=== PATIENT | female | born 1990 | race Caucasian/White ===

== ENCOUNTER 2017-03-08 19:05 | Emergency (ER) | payer BC ==
[2017-03-08 19:23] VITALS: BP 127/83
[2017-03-08] MEDS ORDERED: Orphenadrine 100 MG Tab.ER PO STA (19:54)
--- NOTE | 2017-03-08 19:59 | EDM.PDOC ---
ED HPI GENERAL MEDICAL PROBLEM - General Chief Complaint: Back Pain or Injury Stated Complaint: LOWER BACK PAIN Time Seen by Provider: 03/08/17 19:23 Source of Information: Reports: Patient, Family (), RN Notes Reviewed History Limitations: Reports: No Limitations - History of Present Illness INITIAL COMMENTS - FREE TEXT/NARRATIVE: The patient states that she has a long standing history of lower back pain, but that it has been worse for the past 5 days. No recent injury. She states that she typically gets a steroid injection about once a year. She complains of pain to her sacral area, as well as to the left and right sacroiliac joints. The pain does not radiate. She feels better if she is supine , worse with activity. The patient does not have a PCP. 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 Back Pain Score (Numeric/FACES): 10 - Related Data Allergies Allergy/AdvReac Type Severity Reaction Status Date / Time blue dye Allergy Hives Verified 03/08/17 19:18 pineapple Allergy Swollen Verified 03/08/17 19:18 Tongue red (food color) Allergy Hives Verified 03/08/17 19:18 Sulfa (Sulfonamide Allergy Hives Verified 03/08/17 19:18 Antibiotics) Home Meds: Home Meds Acetaminophen/oxyCODONE [Percocet 325-5 MG] 2 tab PO Q4H PRN #20 tablet [Rx] Cetirizine [ZyrTEC] 10 mg PO DAILY PRN 04/01/16 [History] Ibuprofen [Motrin] 600 mg PO Q4H PRN #30 tablet 04/01/16 [Rx] Orphenadrine [Norflex] 1 tab PO Q12H #20 tab.er 03/08/17 [Rx] Past Medical History Other HEENT History: Wears glasses 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: Reports: Ectopic (04/02/2016), Musculoskeletal History: Reports: Back Pain, Chronic Endocrine/Metabolic History: Reports: Obesity/BMI 30+ - Past Surgical History HEENT Surgical History: Reports: Oral Surgery ([place] teeth extraction) Female Surgical History: Reports: Other (See Below) (Ectopic ) Social & Family History - Tobacco Use Smoking Status *Q: Former Smoker Years of Tobacco use: 14 Packs/Tins Daily: 0.1 Month Tobacco Last Used: Quit December 2016 Second Hand Smoke Exposure: Yes - Caffeine Use Caffeine Use: Reports: Coffee - Alcohol Use Alcohol Use History: No Days Per Week of Alcohol Use: 0 - Recreational Drug Use Recreational Drug Use: No - Living Situation & Occupation Living situation: Reports: , with Spouse Occupation: Employed (Morning [employer] at [employer]) ED ROS GENERAL - Review of Systems Review Of Systems: See Below Constitutional: Reports: No Symptoms HEENT: Reports: No Symptoms Respiratory: Reports: No Symptoms Cardiovascular: Reports: No Symptoms Endocrine: Reports: No Symptoms GI/Abdominal: Reports: No Symptoms : Reports: No Symptoms Musculoskeletal: Reports: No Symptoms Skin: Reports: No Symptoms Neurological: Reports: No Symptoms Psychiatric: Reports: No Symptoms Hematologic/Lymphatic: Reports: No Symptoms Immunologic: Reports: No Symptoms ED EXAM,LOWER BACK PAIN/INJURY - Physical Exam Exam: See Below Exam Limited By: No Limitations General Appearance: Alert, WD/WN, No Apparent Distress Back Exam: Other (No visible abnormality to the patient's lower back, such as swelling, erythema, ecchymosis, or abrasion. The patient reports tenderness primarily to palpation over the sacrum, less so to palpation over either sacroiliac joint. The patient is able to flex the spine to 70, extend to about 10. She is able to tilt to the right about 30, to the left about 45. She is able to twist the spine to about 40 bilaterally. Unilateral knee bend is normal bilaterally. Straight leg raise is negative to 70 bilaterally.) Course - Vital Signs Last Recorded V/S: Last Vital Signs Temp 36.3 C 03/08/17 19:18 Pulse 80 03/08/17 19:18 Resp 16 03/08/17 19:18 BP 127/83 03/08/17 19:18 Pulse Ox 97 03/08/17 19:18 - Orders/Labs/Meds Meds: Medications Discontinued Medications Generic Name Dose Route Start Last Admin Trade Name Freq PRN Reason Stop Dose Admin Orphenadrine Citrate 100 mg 03/08/17 19:54 Norflex PO 03/08/17 19:55 ONETIME STA - Re-Assessments/Exams Free Text/Narrative Re-Assessment/Exam: 03/08/17 19:55 Clinically, the patient has low back strain. She does not have a history or examination that is consistent with disc disease. I will start her on Norflex, recommend she take [id number] ibuprofen, and exercise. I will refer her to the clinic, should her symptoms not improve. Departure - Departure Time of Disposition: 19:56 Disposition: Home, Self-Care 01 Condition: Good Clinical Impression: Low back strain - Discharge Information Prescriptions: Orphenadrine [Norflex] 1 tab PO Q12H #20 tab.er Referrals: PCP,None [Primary Care Provider] - Dora Reese PA-C [Physician Warhead Maintenance Specialist] - Forms: ED Department Discharge Additional Instructions: You were seen in the emergency room for recurrent low back pain. Your examination is consistent with a low back strain, not a herniated disc. You have been started on the muscle relaxant Norflex. Take one tablet every 12 hours, as prescribed. We recommend you take uero-wlc-npyfqhd ibuprofen 2-3 tablets (400-600 mg) with food, as needed for discomfort. It is very important that you stay active. Swimming is best, but if you cannot swim, walking, bicycling, and stretching are all good. Follow-up with Dora Reese in the clinic if your symptoms do not improve within about a week. If any other problems, please do not hesitate to return to the ER.
== END 2017-03-08 20:15 | disposition home or self-care (01) ==
LOC: JD.ED 19:05
DX: S39.012A Strain of muscle, fascia and tendon of lower back, initial encounter (principal); E66.9 Obesity, unspecified; Z88.2 Allergy status to sulfonamides; Z79.899 Other long term (current) drug therapy; Z68.41 Body mass index [BMI] 40.0-44.9, adult; Z87.891 Personal history of nicotine dependence; X58.XXXA Exposure to other specified factors, initial encounter
CPT/HCPCS: 76817; 99283; A9270

== ENCOUNTER 2017-05-17 07:48 | Emergency (ER) | payer BC ==
[2017-05-17] MEDS ORDERED: Ondansetron 4 MG/2 ML SDV IVPUSH ONE ×2 (08:10→11:01)
[2017-05-17] MEDS ORDERED: HYDROmorphone 1 MG/ML Syringe IVPUSH ONE ×2 (08:10→11:33)
--- NOTE | 2017-05-17 08:14 | EDM.PDOC ---
ED HPI GENERAL MEDICAL PROBLEM - General Chief Complaint: Abdominal Pain Stated Complaint: ABDOMINAL PAIN Time Seen by Provider: 05/17/17 07:53 Source of Information: Reports: Patient, Old Records, RN Notes Reviewed History Limitations: Reports: No Limitations - History of Present Illness INITIAL COMMENTS - FREE TEXT/NARRATIVE: The patient states that she was woken around 05:20 this morning with right upper quadrant abdominal pain. She is unable to describe its character. It does not radiate. She states that it waxes and wanes. She has not identified any modifiers. She also reports nausea and vomiting since around 06:00. She states that she attempted to drink some water earlier this morning, but vomited it up. No solid food this morning. She reports having chicken for dinner last night. She reports constipation for the last 2 days, but no recent diarrhea. No urinary symptoms. She denies prior similar symptoms. The patient does not have a PCP. Right Abdomen Pain Score (Numeric/FACES): 9 - Related Data Allergies Allergy/AdvReac Type Severity Reaction Status Date / Time blue dye Allergy Hives Verified 05/17/17 07:56 pineapple Allergy Swollen Verified 05/17/17 07:56 Tongue red (food color) Allergy Hives Verified 05/17/17 07:56 Sulfa (Sulfonamide Allergy Hives Verified 05/17/17 07:56 Antibiotics) Home Meds: Home Meds Hydrocodone/Acetaminophen [Gifford 5-325 Tablet] 1 - 2 tab PO Q6H PRN #20 tablet 05/17/17 [Rx] Ondansetron [Zofran ODT] 4 mg PO Q8H PRN #10 tab.dis 05/17/17 [Rx] Tamsulosin HCl [Flomax] 1 tab PO DAILY #5 cap.er.24h 05/17/17 [Rx] Past Medical History HEENT History: Reports: Impaired Vision Other HEENT History: 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 glasses 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 , Musculoskeletal History: Reports: Back Pain, Chronic Endocrine/Metabolic History: Reports: Obesity/BMI 30+ - Past Surgical History HEENT Surgical History: Reports: Oral Surgery ([place] teeth extraction) Female Surgical History: Reports: Other (See Below) (Ectopic 2015) Social & Family History - Tobacco Use Smoking Status *Q: Former Smoker Years of Tobacco use: 14 Packs/Tins Daily: 0.1 Month Tobacco Last Used: Quit 12/2016 Second Hand Smoke Exposure: Yes - Caffeine Use Caffeine Use: Reports: Coffee - Alcohol Use Alcohol Use History: Yes Days Per Week of Alcohol Use: 0 - Recreational Drug Use Recreational Drug Use: No - Living Situation & Occupation Living situation: Reports: , with Spouse Occupation: Employed ([employer] at [employer]) ED ROS GENERAL - Review of Systems Review Of Systems: See Below Constitutional: Reports: No Symptoms HEENT: Reports: No Symptoms Respiratory: Reports: No Symptoms Cardiovascular: Reports: No Symptoms Endocrine: Reports: No Symptoms GI/Abdominal: Reports: No Symptoms : Reports: No Symptoms Musculoskeletal: Reports: No Symptoms Skin: Reports: No Symptoms Neurological: Reports: No Symptoms Psychiatric: Reports: No Symptoms Hematologic/Lymphatic: Reports: No Symptoms Immunologic: Reports: No Symptoms ED EXAM, GI/ABD - Physical Exam Exam: See Below Exam Limited By: No Limitations General Appearance: Alert, WD/WN, Mild Distress (Appears uncomfortable) Eyes: Bilateral: Normal Appearance, EOMI Ears: Normal External Exam, Hearing Grossly Normal Nose: Normal Inspection, No Blood Throat/Mouth: Normal Inspection, Normal Lips, Normal Voice, No Airway Compromise Head: Atraumatic, Normocephalic Neck: Normal Inspection, Full Range of Motion Respiratory/Chest: No Respiratory Distress, Lungs Clear, Normal Breath Sounds, No Accessory Muscle Use Cardiovascular: Normal Peripheral Pulses, Regular Rate, Rhythm, No Gallop, No JVD, No Murmur, No Rub GI/Abdominal Exam: Normal Bowel Sounds, Soft, No Organomegaly, No Distention, No Abnormal Bruit, No Mass, Pelvis Stable, Tender (In the right upper quadrant and suprapubic regions. Nontender elsewhere.), Other (Obese) (Female) Exam: Deferred Rectal (Female) Exam: Deferred Back Exam: Normal Inspection, Full Range of Motion, CVA Tenderness (R). No: CVA Tenderness (L) Extremities: Normal Inspection, Normal Range of Motion, No Pedal Edema, Normal Capillary Refill Neurological: Alert, Oriented, Normal Cognition, No Motor/Sensory Deficits Psychiatric: Normal Affect Skin Exam: Warm, Dry, Intact, Normal Color, No Rash Lymphatic: No Adenopathy Course - Vital Signs Last Recorded V/S: Last Vital Signs Temp 35.7 C 05/17/17 07:53 Pulse 60 05/17/17 07:53 Resp 16 05/17/17 07:53 BP 141/80 H 05/17/17 07:53 Pulse Ox 99 05/17/17 07:53 - Orders/Labs/Meds Orders: Active Orders 24 hr Category Date Time Status Strain Urine [RC] ASDIRECTED Care 05/17/17 11:36 Ordered Abdomen Ltd [US] Stat Exams 05/17/17 08:12 Taken Abdomen Pelvis w Cont [CT] Stat Exams 05/17/17 08:10 Taken Sodium Chloride 0.9% [Normal Saline] 1,000 ml Med 05/17/17 08:15 Active IV ASDIRECTED Sodium Chloride 0.9% [Saline Flush] Med 05/17/17 10:27 Active 10 ml FLUSH ONETIME PRN Medication Orders Sodium Chloride (Normal Saline) 1,000 mls @ 150 mls/hr IV ASDIRECTED ANDRÉS Last Admin: 05/17/17 08:32 Dose: 150 mls/hr Sodium Chloride (Saline Flush) 10 ml FLUSH ONETIME PRN PRN Reason: IV FLUSH Last Admin: 05/17/17 10:53 Dose: 10 ml Labs: Laboratory Tests 05/17/17 05/17/17 05/17/17 Range/Units 08:30 08:30 09:25 WBC 12.67 H (3.98-10.04) K/mm3 RBC 4.89 (3.98-5.22) M/mm3 Hgb 13.7 (11.2-15.7) gm/L Hct 40.4 (34.1-44.9) % MCV 82.6 (79.4-94.8) fl MCH 28.0 (25.6-32.2) pg MCHC 33.9 (32.2-35.5) g/dl RDW Std Deviation 46.4 H (36.4-46.3) fL Plt Count 308 (182-369) K/mm3 MPV 10.3 (9.4-12.3) fl Neutrophils % (Manual) 85 H (40-60) % Band Neutrophils % 0 (0-10) % Lymphocytes % (Manual) 13 L (20-40) % Atypical Lymphs % 1 % Monocytes % (Manual) 1 L (2-10) % Eosinophils % (Manual) 0 L (0.7-5.8) % Basophils % (Manual) 0 L (0.1-1.2) Platelet Estimate Adequate Plt Morphology Comment Normal Anisocytosis 1+ slight Microcytosis 1+ slight Macrocytosis 1+ slight RBC Morph Comment Normal Sodium 137 (136-145) mEq/L Potassium 4.1 (3.5-5.1) mEq/L Chloride 103 (98-107) mEq/L Carbon Dioxide 23 (21-32) mEq/L Anion Gap 15.1 H (5-15) BUN 31 H (7-18) mg/dL Creatinine 0.9 (0.55-1.02) mg/dL Est Cr Clr Drug Dosing TNP Estimated GFR (MDRD) > 60 (>60) mL/min BUN/Creatinine Ratio 34.4 H (14-18) Glucose 126 H (74-106) mg/dL Calcium 9.3 (8.5-10.1) mg/dL Total Bilirubin 0.2 (0.2-1.0) mg/dL AST 16 (15-37) U/L ALT 38 (14-59) U/L Alkaline Phosphatase 70 (46-116) U/L Total Protein 8.2 (6.4-8.2) g/dl Albumin 4.1 (3.4-5.0) g/dl Globulin 4.1 gm/dL Albumin/Globulin Ratio 1.0 (1-2) Lipase 100 (73-393) U/L Urine Color (Yellow) Urine Appearance (Clear) Urine pH (5.0-8.0) Ur Specific [place] (1.005-1.030) Urine Protein (Negative) Urine Glucose (UA) (Negative) Urine Ketones (Negative) Urine Occult Blood (Negative) Urine Nitrite (Negative) Urine Bilirubin (Negative) Urine Urobilinogen (0.2-1.0) Ur Leukocyte Esterase (Negative) Urine RBC (0-5) /hpf Urine WBC (0-5) /hpf Ur Epithelial Cells (0-5) /hpf Urine Bacteria (FEW) /hpf Urine Mucus (FEW) /hpf Urine HCG, Qual Negative (NEGATIVE) 05/17/17 Range/Units 09:25 WBC (3.98-10.04) K/mm3 RBC (3.98-5.22) M/mm3 Hgb (11.2-15.7) gm/L Hct (34.1-44.9) % MCV (79.4-94.8) fl MCH (25.6-32.2) pg MCHC (32.2-35.5) g/dl RDW Std Deviation (36.4-46.3) fL Plt Count (182-369) K/mm3 MPV (9.4-12.3) fl Neutrophils % (Manual) (40-60) % Band Neutrophils % (0-10) % Lymphocytes % (Manual) (20-40) % Atypical Lymphs % % Monocytes % (Manual) (2-10) % Eosinophils % (Manual) (0.7-5.8) % Basophils % (Manual) (0.1-1.2) Platelet Estimate Plt Morphology Comment Anisocytosis Microcytosis Macrocytosis RBC Morph Comment Sodium (136-145) mEq/L Potassium (3.5-5.1) mEq/L Chloride (98-107) mEq/L Carbon Dioxide (21-32) mEq/L Anion Gap (5-15) BUN (7-18) mg/dL Creatinine (0.55-1.02) mg/dL Est Cr Clr Drug Dosing Estimated GFR (MDRD) (>60) mL/min BUN/Creatinine Ratio (14-18) Glucose (74-106) mg/dL Calcium (8.5-10.1) mg/dL Total Bilirubin (0.2-1.0) mg/dL AST (15-37) U/L ALT (14-59) U/L Alkaline Phosphatase (46-116) U/L Total Protein (6.4-8.2) g/dl Albumin (3.4-5.0) g/dl Globulin gm/dL Albumin/Globulin Ratio (1-2) Lipase (73-393) U/L Urine Color Yellow (Yellow) Urine Appearance Slt cloudy H (Clear) Urine pH 6.0 (5.0-8.0) Ur Specific [place] > or = 1.030 (1.005-1.030) Urine Protein Trace H (Negative) Urine Glucose (UA) Negative (Negative) Urine Ketones 2+ H (Negative) Urine Occult Blood 3+ H (Negative) Urine Nitrite Negative (Negative) Urine Bilirubin Negative (Negative) Urine Urobilinogen 0.2 (0.2-1.0) Ur Leukocyte Esterase Negative (Negative) Urine RBC 40-50 H (0-5) /hpf Urine WBC 0-5 (0-5) /hpf Ur Epithelial Cells 0-5 (0-5) /hpf Urine Bacteria Few (FEW) /hpf Urine Mucus Few (FEW) /hpf Urine HCG, Qual (NEGATIVE) Meds: Medications Generic Name Dose Route Start Last Admin Trade Name Freq PRN Reason Stop Dose Admin Sodium Chloride 1,000 mls @ 150 mls/hr 05/17/17 08:15 05/17/17 08:32 Normal Saline IV 150 mls/hr ASDIRECTED ANDRÉS Administration Sodium Chloride 10 ml 05/17/17 10:27 05/17/17 10:53 Saline Flush FLUSH 10 ml ONETIME PRN Administration IV FLUSH Discontinued Medications Generic Name Dose Route Start Last Admin Trade Name Freq PRN Reason Stop Dose Admin Diatrizoate Meglum/Diatrizoate Sod 90 ml 05/17/17 10:27 05/17/17 10:53 Gastrografin 37% PO 05/17/17 10:28 90 ml ONETIME ONE Administration Hydromorphone HCl 1 mg 05/17/17 08:10 05/17/17 08:34 Dilaudid IVPUSH 05/17/17 08:11 1 mg ONETIME ONE Administration Hydromorphone HCl 1 mg 05/17/17 11:33 Dilaudid IVPUSH 05/17/17 11:34 ONETIME ONE Iopamidol 125 ml 05/17/17 10:27 05/17/17 10:53 Isovue-300 (61%) IVPUSH 05/17/17 10:28 125 ml ONETIME ONE Administration Ondansetron HCl 4 mg 05/17/17 08:10 05/17/17 08:33 Zofran IVPUSH 05/17/17 08:11 4 mg ONETIME ONE Administration Ondansetron HCl 4 mg 05/17/17 11:01 05/17/17 11:07 Zofran IVPUSH 05/17/17 11:02 4 mg ONETIME ONE Administration Tamsulosin HCl 0.4 mg 05/17/17 11:35 Flomax PO 05/17/17 11:36 ONETIME ONE - Re-Assessments/Exams Free Text/Narrative Re-Assessment/Exam: 05/17/17 08:13 The patient's history and physical exam are concerning for acute cholecystitis. Because the patient has not had anything to eat or drink today, I have ordered an ultrasound of the right upper quadrant, to be followed by a CT of the abdomen and pelvis with oral and IV contrast. 05/17/17 09:37 The patient has returned from ultrasound and is requesting additional pain medication. While I do not have the urologist interpretation of the ultrasound yet, the mechanical manufacturing technician tells me that she did not find any abnormalities associated with the gallbladder, such as cholelithiasis or evidence of cholecystitis. I am therefore going to refrain from ordering additional pain medication at this time. 05/17/17 09:57 Ultrasound of the right upper quadrant is read by [facility] as "No acute findings." 05/17/17 11:34 CT of the abdomen and pelvis with oral and IV contrast is read by [facility] as: 3.2 mm proximal RIGHT ureteral calculus causes dilatation of the RIGHT ureter, and RIGHT collecting system. The RIGHT kidney is edematous and there is RIGHT perirenal stranding. 05/17/17 11:46 Test results discussed with the patient and her . Today's workup shows that she has a 3.2 mm right ureteral stone. She will likely pass this on her own. I will discharge her home with prescriptions for Gifford, Zofran, and Flomax , and she will leave with a urinary strainer. I will refer her to Dr. Ohara. Departure - Departure Time of Disposition: 11:47 Disposition: Home, Self-Care 01 Condition: Good Clinical Impression: Ureterolithiasis - Discharge Information Prescriptions: Hydrocodone/Acetaminophen [Gifford 5-325 Tablet] 1 - 2 tab PO Q6H PRN #20 tablet PRN Reason: Pain (Severe 7-10) Referrals: PCP,None [Primary Care Provider] - Jerman Ohara MD [Physician] - Forms: ED Department Discharge Additional Instructions: You were seen in the emergency room for upper right abdominal pain. Workup in the ER included blood work, a urinalysis, a urine test, an ultrasound of your gallbladder, and a CT scan of your abdomen and pelvis. Your workup showed that you have a 3.2 mm stone in your right ureter (the tube that leads from your kidney to your bladder). Based on its size, you will LIKELY pass this stone on your own. Strain all your urine. If you collect the stone, take it to your doctor for analysis. Take ljbe-yau-sjcuigv ibuprofen 3 tablets (600 mg) every 8 hours, with food, as needed for pain. You may take 1-2 tablets of the pain medicine Gifford up to every 6 hours, as needed for pain not relieved by ibuprofen. If you take Gifford, do not drive or operate heavy machinery for 12 hours afterwards. Gifford will likely cause constipation, so consider taking a stool softener. Dissolve one tablet of the anti-nausea medicine Zofran on your tongue up to every 8 hours, as needed for nausea/vomiting. Take one tablet of the anti-spasm medicine Flomax daily, starting tomorrow, 05/18/2017. If your symptoms have not resolved within a week, please follow-up with the Urologist Dr. Ohara. If any other problems, please do not hesitate to return to the ER. - My Orders Last 24 Hours: My Active Orders 05/17/17 08:10 Abdomen Pelvis w Cont [CT] Stat 05/17/17 08:12 Abdomen Ltd [US] Stat 05/17/17 08:15 Sodium Chloride 0.9% [Normal Saline] 1,000 ml IV ASDIRECTED 05/17/17 10:27 Sodium Chloride 0.9% [Saline Flush] 10 ml FLUSH ONETIME PRN 05/17/17 11:36 Strain Urine [RC] ASDIRECTED - Assessment/Plan Last 24 Hours: My Active Orders 05/17/17 08:10 Abdomen Pelvis w Cont [CT] Stat 05/17/17 08:12 Abdomen Ltd [US] Stat 05/17/17 08:15 Sodium Chloride 0.9% [Normal Saline] 1,000 ml IV ASDIRECTED 05/17/17 10:27 Sodium Chloride 0.9% [Saline Flush] 10 ml FLUSH ONETIME PRN 05/17/17 11:36 Strain Urine [RC] ASDIRECTED
[2017-05-17] MEDS ORDERED: Sodium Chloride 0.9% 1,000 ML IV SCH (08:15)
[2017-05-17 09:33] VITALS: BP 141/80
[2017-05-17] MEDS ORDERED: Diatrizoate Meglumine/Diatrizoate Sodium 37% 120 ML Bottle PO ONE (10:27)
[2017-05-17] MEDS ORDERED: Iopamidol 612 MG/ML 150 ML Bottle IVPUSH ONE (10:27)
[2017-05-17] MEDS ORDERED: Sodium Chloride 0.9% 10 ML Syringe FLUSH PRN (10:27)
[2017-05-17] MEDS ORDERED: Tamsulosin 0.4 MG Cap.ER PO ONE (11:35)
--- NOTE | 2017-05-18 07:41 | US ---
Limited abdominal ultrasound: Multiple real-time images of the upper right abdomen were obtained. Comparison: No previous abdominal imaging. Subsequent CT abdomen and pelvis exam performed later on the same day (10:55 AM). Liver shows no focal abnormality. Gallbladder shows no gallstones. No gallbladder wall thickening or biliary duct dilatation is seen. Right kidney is slightly hydronephrotic. Right kidney length measures 11.2 cm. Visualized portions of the pancreas are unremarkable. Impression: 1. Slight right-sided hydronephrosis. This correlates on subsequent CT abdomen and pelvis study to obstructing proximal right ureteral stone. 2. Other portions of the right upper quadrant abdominal ultrasound are unremarkable. Diagnostic code #3 Agree with preliminary report issued by [facility] ([facility] preliminary report dictated on 05/17/17, 10:39 AM Central Time)
--- NOTE | 2017-05-18 07:41 | CT ---
CT abdomen and pelvis Technique: Multiple axial sections were obtained from above the dome of the diaphragm inferiorly through the pubic symphysis. Intravenous and oral contrast was utilized. Delayed images were also obtained through the abdomen and pelvis. Comparison: No prior CT abdomen exam. Findings: Mildly delayed contrast-enhancement of the right kidney as compared to the left side is seen. Right kidney is mildly swollen with surrounding inflammatory change. These findings are caused by a proximal obstructing right ureteral stone measuring about 3.9 mm. Left kidney is unremarkable. Delayed images show no contrast excretion into the right ureter. Contrast noted within the left ureter. Visualized lung bases are clear. Liver shows no focal parenchymal abnormality. Gallbladder shows no calcified gallstones. Spleen appears within normal limits. Adrenal glands show no nodule. Pancreas is within normal limits. Aorta shows no aneurysmal dilatation. No retroperitoneal adenopathy or mesenteric abnormalities are seen. No pelvic mass or adenopathy is seen. Appendix is not definitely visualized. Delayed images show contrast within the bladder from the left kidney. Bone window settings were reviewed which are within normal limits for the patient's age. Impression: 1. Findings within the right kidney as noted above caused by an obstructing 3.9 mm proximal right ureteral stone. 2. No additional abnormality is seen. Diagnostic code #3 Agree with preliminary report issued by [facility] ([facility] preliminary report dictated on 05/17/17, 12:27 PM Central Time)
== END 2017-05-17 12:07 | disposition home or self-care (01) ==
LOC: JD.ED 07:48
DX: N13.2 Hydronephrosis with renal and ureteral calculous obstruction (principal); E66.9 Obesity, unspecified; Z87.891 Personal history of nicotine dependence; Z68.41 Body mass index [BMI] 40.0-44.9, adult; Z88.2 Allergy status to sulfonamides
CPT/HCPCS: 36415; 74177; 76705; 80053; 81001; 81025; 83690; 85025; 96361; 96374; 96375; 96376; 99284; A9270; J1170; J2405; J7040; J7050; Q9963; Q9967

== ENCOUNTER 2019-10-24 01:37 | Inpatient (IN) | payer OTHER ==
[2019-10-24] MEDS ORDERED: Metoclopramide 10 MG/2 ML SDV IVPUSH ONE (05:40)
[2019-10-24] MEDS ORDERED: ceFAZolin 2 GM in Premix Bag 1 BAG IV ONE (05:40)
[2019-10-24] MEDS ORDERED: Sodium Chloride 0.9% 10 ML Syringe FLUSH PRN (05:40)
[2019-10-24] MEDS ORDERED: Citric Acid/Sodium Citrate Solution 30 ML Cup PO ONE (05:40)
[2019-10-24] MEDS ORDERED: Acetaminophen 325 MG Tab PO PRN (05:40)
[2019-10-24] MEDS ORDERED: Nalbuphine 10 MG/ML Syringe IVPUSH PRN (05:40)
[2019-10-24] MEDS ORDERED: Oxytocin/Lactated Ringers 10 UNIT/1,000 ML BAG IV SCH (05:45)
[2019-10-24] MEDS ORDERED: Lactated Ringers 1,000 ML IV SCH (05:45)
[2019-10-24] MEDS ORDERED: ceFAZolin 1 GM Vial IV ONE (06:28)
[2019-10-24] MEDS ORDERED: ceFAZolin 1 GM in Premix Bag 1 BAG IV ONE (06:45)
[2019-10-24] MEDS ORDERED: Bupivacaine 0.5% 30 ML SDV ONE (06:46)
[2019-10-24] MEDS ORDERED: Oxytocin 10 Units/1 ML SDV ONE ×2 (07:24→08:18)
[2019-10-24] MEDS ORDERED: fentaNYL 100 MCG/2 ML SDV ONE (07:24)
[2019-10-24] MEDS ORDERED: Morphine PF 10 MG/10 ML SDV ONE (07:24)
[2019-10-24] MEDS ORDERED: ceFAZolin 1 GM Vial ONE (07:25)
[2019-10-24] MEDS ORDERED: Lactated Ringers 1,000 ML ONE ×2 (07:35→08:43)
[2019-10-24] MEDS ORDERED: Phenylephrine/Normal Saline 100 MCG/ML 10 ML Syringe ONE (08:05)
[2019-10-24] MEDS ORDERED: Ketorolac 30 MG/ML SDV ONE (08:39)
--- NOTE | 2019-10-24 08:59 | PCM.OPNOTE ---
- General Post-Op/Procedure Note Date of Surgery/Procedure: 10/24/19 Operative Procedure(s): Primary lower uterine segment transverse section through Pfannenstiel skin incision Findings: Baby is in a christa breech presentation. Amniotic fluid was clear but in minimal amounts as patient had ruptured membranes. Uterus tubes and ovaries consistent with term . Slight adhesion noted from the anterior right-sided uterus to the omentum. Pre Op Diagnosis: 39 3/7 week intrauterine with christa breech presentation Post-Op Diagnosis: Same with delivery of viable male Apgars 8 and 9, weight 6 lbs. 13 oz. at 0840 hrs. on 10/24/2019 Anesthesia Technique: Spinal Other Anesthesia Type: Marcaine 0.5%20 mL total Primary Surgeon: Taiwo Scales Anesthesia Provider: Juan Moran Reason Real Estate Development Manager Was Necessary: Retraction, assistance, patient's safety, quality of care. Fluid Replacement, Intraop: 2,000 Output, Urine Amount: 200 Drain/Tube Comments:: Indwelling bladder catheter Complications: None Condition: Good Free Text/Narrative:: Surgery duration: 27 minutes Surgery duration: Procedure: The patient is appropriately consented. Patient was transferred to the room and placed in a sitting position. Spinal anesthesia was administered. After confirmation of adequate anesthesia patient was placed in a supine position with a wedge under her right side to facilitate left lateral positioning. The patient was prepped and draped in usual fashion after Madrigal catheter was already placed . The anesthetic was checked and found to be adequate. 20 mL of Marcaine 0.5% was injected locally in the Pfannenstiel incision site. The Pfannenstiel skin incision was then made and carried down through skin, subcutaneous and fascial layers. The fascia was then undermined superiorly and inferiorly to allow for adequate operating room. The recti muscles midline and preperitoneal fat was bluntly dissected. Peritoneal cavity was entered longitudinally. The vesicouterine peritoneum was then incised transversely and bladder flap was developed. Myometrium was incised transversely to the level of the amniotic sac. This incision was extended bilaterally in a blunt fashion. The amniotic sac was then ruptured resulting in clear amniotic fluid. A hand is placed in the low uterine segment and the baby's breech was brought forth through the incision. The baby was completely delivered using fundal pressure in a routine fashion. The nose and mouth were bulb suctioned. Baby's cord was clamped x2 cut and baby was handed off to attending o and m supervisor Dr Mccullough. Placenta was expressed after cord blood was obtained. Uterus was then exteriorized to allow for easier closure. The cervix was assessed and found to be dilated adequately to allow egress of blood. The uterus was closed in 2 layers. The first layer a running locked suture of 0 Monocryl, the second layer a running locked vertical mattress suture of 0 Monocryl. [id number] suture was placed at mid incision to control 1 bleeder. Hemostasis confirmed at this time. Sponge instrument needle counts are correct. The uterus was returned to the abdominal cavity and lateral gutters were cleared of blood. Once again sponge needle counts are correct. The anterior abdominal wall was closed with a #1 PDS suture from angle to angle. The subcutaneous area was found to be free of any bleeders. interrupted sutures of 3-0 Monocryl were used to reapproximate the subcutaneous layer.Skin was closed with a running subcuticular stitch of 3-0 Monocryl in a vertical mattress suture fashion using a Paddy needle. Prineo mesh/glue was then applied to further approximate the incision. It should be noted that patient received 3 g of Ancef preoperatively for infection prophylaxis and had Pitocin infused after delivery of the placenta to facilitate uterine contraction. She also had sequential compression stockings in place for DVT prophylaxis. Patient was discharged from the operating room in satisfactory condition.
[2019-10-24] MEDS ORDERED: Dextrose 5%-Lactated Ringers 1,000 ML IV SCH (10:12)
[2019-10-24] MEDS ORDERED: diphenhydrAMINE 50 MG/ML SDV IVPUSH PRN (10:12)
[2019-10-24] MEDS ORDERED: Naloxone 0.4 MG/ML SDV IVPUSH PRN (10:12)
[2019-10-24] MEDS ORDERED: Ibuprofen 800 MG Tab PO SCH (10:12)
[2019-10-24] MEDS ORDERED: Ondansetron 4 MG/2 ML SDV IV PRN (10:12)
[2019-10-24] MEDS ORDERED: Acetaminophen/oxyCODONE 325-5 MG Tab PO PRN (10:12)
[2019-10-24] MEDS ORDERED: ePHEDrine 50 MG/ML SDV IVPUSH PRN (10:12)
[2019-10-24] MEDS: Prenatal Multivitamin with Calcium/Folic Acid/Iron Tab PO SCH (12:01)
[2019-10-24] MEDS: Docusate Sodium 100 MG Cap PO SCH ×2 (12:01→22:53)
[2019-10-24] MEDS: Acetaminophen/oxyCODONE 325-5 MG Tab PO PRN (18:38)
[2019-10-24] MEDS: Ibuprofen 800 MG Tab PO SCH (22:52)
[2019-10-25] MEDS: Ibuprofen 800 MG Tab PO SCH ×3 (04:55→21:04)
[2019-10-25] MEDS ORDERED: Levothyroxine 25 MCG Tab PO SCH (06:00)
--- NOTE | 2019-10-25 09:31 | PCM.SN ---
- Free Text/Narrative Note: note: Patient is doing well in the period. Minimal lochia, voiding well, ambulated without problems. Nursing without concerns. Patient is afebrile, vital signs are stable Abdomen is flat, soft, uterus is below the umbilicus and is firm and nontender. Incision is intact. Somewhat moist. It is intra-trigus area. Legs are nontender. Assessment: -postoperative recovery going well. Plan: Routine care. Patient be discharged home within the next 24-48 hours.
--- NOTE | 2019-10-25 11:57 | PCM48HPAN ---
Post Anesthesia Note - EVALUATION WITHIN 48HRS OF ANESTHETIC Vital Signs in Normal Range: Yes Patient Participated in Evaluation: Yes Respiratory Function Stable: Yes Airway Patent: Yes Cardiovascular Function Stable: Yes Hydration Status Stable: Yes Pain Control Satisfactory: Yes Nausea and Vomiting Control Satisfactory: Yes Mental Status Recovered: Yes Vital Signs: Last Vital Signs Temp 36.5 C 10/25/19 08:45 Pulse 88 10/25/19 08:45 Resp 15 10/25/19 08:45 BP 129/35 L 10/25/19 08:45 Pulse Ox 100 10/25/19 08:45
[2019-10-25] MEDS: Docusate Sodium 100 MG Cap PO SCH (12:17)
[2019-10-25] MEDS: Prenatal Multivitamin with Calcium/Folic Acid/Iron Tab PO SCH (12:26)
[2019-10-25] MEDS: Acetaminophen/oxyCODONE 325-5 MG Tab PO PRN ×2 (13:07→19:43)
[2019-10-26] MEDS: Docusate Sodium 100 MG Cap PO SCH (04:27)
[2019-10-26] MEDS: Ibuprofen 800 MG Tab PO SCH (04:34)
--- NOTE | 2019-10-26 06:36 | PCM.DCSUM1 ---
Discharge Summary - Hospital Course Free Text/Narrative:: Lillian is a 29-year-old female who was admitted on 10/24/2019 with spontaneous rupture membranes. Baby had been noted to be in a christa breech presentation. Plan had been to attempt an sternal cephalic version. With spontaneous rupture membranes this plan was aborted and the plan to proceed with a primary lower uterine segment transverse section was then undertaken. This was discussed in detail patient has had been previously. Consent was signed. Patient underwent primary section on 10/24/2019. She delivered a viable , linn, male infant with Apgars of 8 and 9, weight of 6 lbs. 13 oz. at 0840 hrs. on 10/24/2019. Post operatively pain was controlled initially with Duramorph spinal block. Also had Toradol and ibuprofen and on postoperative day 1 again using Percocet in addition to the ibuprofen. With this she had good pain relief. She is nursing. She intact and healing well. Her vital signs and stable. She is desiring discharge home. Diagnosis: Stroke: No - Discharge Data Discharge Date: 10/26/19 Discharge Disposition: Home, Self-Care 01 Condition: Good - Referral to Home Health Primary Care Physician: Wu Long MD - Patient Summary/Data Operative Procedure(s) Performed: Primary lower uterine segment transverse C- section section through Pfannenstiel skin incision - Patient Instructions Diet: Regular Diet as Tolerated (Nursing diet with increase calories and calcium as recommended) Activity: As Tolerated (No lifting greater than 15 pounds or driving car 1 week. No intercourse or tampons until seen back in clinic.) Driving: Do Not Drive Showering/Bathing: May Shower Wound/Incision Care: Keep Operative Site/Wound Site Clean and Dry Notify Provider of: Fever, Increased Pain, Swelling and Redness, Nausea and/or Vomiting - Discharge Plan Home Medications: Home Meds Levothyroxine Sodium [Synthroid] 25 mcg PO ACBREAKFAST 10/23/19 [History] Mv-Mn/Iron/FA/Herbal/Digestive [ One Tablet] 1 tab PO DAILY 10/23/19 [ History] Acetaminophen/oxyCODONE [Percocet 325-5 MG] 1 tab PO Q4H PRN tablet 10/26/19 [ Rx] Ibuprofen [Motrin] 800 mg PO Q8H tablet 10/26/19 [Rx] Patient Handouts: Steps to Quit Smoking Referrals: Wu Long MD [Primary Care Provider] - (Return to clinicDr. Long2-3 weeks) - Discharge Summary/Plan Comment DC Time >30 min.: No Discharge Summary/Plan Comment: Discharge instructions: 1. Discharge home 2. Diet, activity and follow-up discussed with patient. Recommend nursing diet with increased calories and calcium. 3. Precautions given concern increased pain, bleeding, temperature, signs/ symptoms of DVT/PE. 4. Medications per home medication was printed, discussed with and given to the patient. 5. Return to clinic-[facility]. Long[facility] in 2-3 weeks. Diagnosis: Term -delivered Condition: Good - Patient Data Vitals - Most Recent: Last Vital Signs Temp 36.4 C 10/26/19 02:45 Pulse 89 10/26/19 02:45 Resp 16 10/26/19 02:45 BP 125/70 10/26/19 02:45 Pulse Ox 97 10/26/19 02:45 Weight - Most Recent: 125.328 kg I&O - Last 24 hours: Intake & Output 10/25/19 10/25/19 10/26/19 14:59 22:59 06:59 Intake Total 180 Output Total 1550 250 Balance -1370 -250 Med Orders - Current: Current Medications Diphenhydramine HCl (Benadryl) 25 mg IVPUSH Q6H PRN PRN Reason: Itching or Nausea Docusate Sodium (Colace) 100 mg PO Q12H [facility] Last Admin: 10/26/19 04:27 Dose: Not Given Ephedrine Sulfate (Ephedrine Sulfate) 5 mg IVPUSH SEECOMMENT PRN PRN Reason: Other Ibuprofen (Motrin) 800 mg PO Q8H [facility] Last Admin: 10/26/19 04:34 Dose: 800 mg Naloxone HCl (Narcan) 0.1 mg IVPUSH SEECOMMENT PRN PRN Reason: Respiratory Depression Ondansetron HCl (Zofran) 4 mg IV Q4H PRN PRN Reason: Nausea/Vomiting Oxycodone/Acetaminophen (Percocet 325-5 Mg) 2 tab PO Q4H PRN PRN Reason: Pain (severe 7-10) Last Admin: 10/25/19 19:43 Dose: 2 tab Oxycodone/Acetaminophen (Percocet 325-5 Mg) 1 tab PO Q4H PRN PRN Reason: Pain (moderate 4-6) Prenat Multivit/Can Capper/Iron/Folic Ac ( Plus Iron) 1 each PO DAILY [facility] Last Admin: 10/25/19 12:26 Dose: Not Given Discontinued Medications Acetaminophen (Tylenol) 650 mg PO Q4H PRN PRN Reason: Pain/Fever Bupivacaine HCl (Marcaine 0.5%) Confirm Administered Dose 30 ml .ROUTE .STK-MED ONE Stop: 10/24/19 06:47 Cefazolin Sodium (Ancef) Confirm Administered Dose 3 gm .ROUTE .STK-MED ONE Stop: 10/24/19 07:26 Citric Acid/Sodium Citrate (Bicitra Solution) 30 ml PO ONETIME ONE Stop: 10/24/19 05:41 Last Admin: 10/24/19 06:49 Dose: 30 ml Fentanyl (Sublimaze) Confirm Administered Dose 100 mcg .ROUTE .STK-MED ONE Stop: 10/24/19 07:25 Cefazolin Sodium/Dextrose 2 gm (/ Premix) 50 mls @ 100 mls/hr IV ONETIME ONE Stop: 10/24/19 06:09 Last Admin: 10/25/19 14:35 Dose: Not Given Lactated Ringer's (Ringers, Lactated) 1,000 mls @ 125 mls/hr IV ASDIRECTED [facility] Last Admin: 10/24/19 06:48 Dose: 125 mls/hr Oxytocin/Lactated Ringer's (Pitocin In Lr 10 Units/1,000 Ml) 10 unit in 1,000 mls @ 100 mls/hr IV ASDIRECTED [facility]; Protocol Cefazolin Sodium/Dextrose 1 gm (/ Premix) 50 mls @ 100 mls/hr IV ONETIME ONE Stop: 10/24/19 07:14 Last Admin: 10/25/19 14:35 Dose: Not Given Lactated Ringer's (Ringers, Lactated) Confirm Administered Dose 1,000 mls @ as directed .ROUTE .STK-MED ONE Stop: 10/24/19 07:36 Lactated Ringer's (Ringers, Lactated) Confirm Administered Dose 1,000 mls @ as directed .ROUTE .STK-MED ONE Stop: 10/24/19 08:44 Dextrose/Lactated Ringer's (Dextrose 5%-Lactated Ringers) 1,000 mls @ 125 mls/ hr IV ASDIRECTED ANDRÉS Stop: 10/24/19 18:11 Last Admin: 10/24/19 12:02 Dose: 125 mls/hr Ibuprofen (Motrin) 800 mg PO Q8H [facility] Last Admin: 10/24/19 12:01 Dose: 800 mg Ketorolac Tromethamine (Toradol) Confirm Administered Dose 30 mg .ROUTE .STK- MED ONE Stop: 10/24/19 08:40 Levothyroxine Sodium (Levothyroxine) 25 mcg PO ACBREAKFAST [facility] Lidocaine HCl (Xylocaine-Mpf 1%) Confirm Administered Dose 10 ml .ROUTE .STK- MED ONE Stop: 10/24/19 08:17 Metoclopramide HCl (Reglan) 10 mg IVPUSH ONETIME ONE Stop: 10/24/19 05:41 Last Admin: 10/24/19 06:49 Dose: 10 mg Morphine Sulfate (Duramorph Pf) Confirm Administered Dose 10 mg .ROUTE .STK-MED ONE Stop: 10/24/19 07:25 Nalbuphine HCl (Nubain) 10 mg IVPUSH Q2H PRN PRN Reason: Pain Oxytocin (Pitocin) Confirm Administered Dose 20 unit .ROUTE .STK-MED ONE Stop: 10/24/19 07:25 Oxytocin (Pitocin) Confirm Administered Dose 20 unit .ROUTE .STK-MED ONE Stop: 10/24/19 08:19 Phenylephrine HCl (Phenylephrine In Ns 100 Mcg/Ml) Confirm Administered Dose 1 mg .ROUTE .STK-MED ONE Stop: 10/24/19 08:06 Sodium Chloride (Saline Flush) 10 ml FLUSH ASDIRECTED PRN PRN Reason: Keep Vein Open
[2019-10-26] MEDS: Prenatal Multivitamin with Calcium/Folic Acid/Iron Tab PO SCH (08:29)
[2019-10-26] MEDS: Acetaminophen/oxyCODONE 325-5 MG Tab PO PRN (08:30)
[2019-10-26 09:22] VITALS: BP 129/92; PULSE 90
== END 2019-10-26 12:10 | disposition home or self-care (01) | DRG 788 ==
LOC: JD.OBCHECK 01:37 → JD.OB 04:21
PROVIDERS: ADMIT Obstetrics & Gynecology; ATTEND Obstetrics & Gynecology
PROC: 10D00Z1 Extraction of Products of Conception, Low, Open Approach (ICD-10-PCS; principal; 2019-10-24)
DX: O32.1XX0 Maternal care for breech presentation, not applicable or unspecified (principal); Z37.0 Single live birth; E03.9 Hypothyroidism, unspecified; O99.284 Endocrine, nutritional and metabolic diseases complicating childbirth; E66.9 Obesity, unspecified; O99.214 Obesity complicating childbirth; Z87.891 Personal history of nicotine dependence; Z79.899 Other long term (current) drug therapy; Z91.018 Allergy to other foods; Z3A.39 39 weeks gestation of pregnancy; Z88.2 Allergy status to sulfonamides
CPT/HCPCS: 01961; 36415; 59025; 85025; 86592; 86850; 86900; 86901; A9270-GY; J0690; J1885; J2001; J2270; J2370; J2590; J2765; J3010; J3490; J7120; J7121

== ENCOUNTER 2022-12-09 08:00 | Inpatient (IN) | payer BC ==
[~2022-12-09 08:00] MED LIST: Bupivacaine 0.25% 10 ML SDV ONE
[2022-12-09] MEDS ORDERED: Sodium Chloride 0.9% 10 ML Syringe FLUSH PRN (08:24)
[2022-12-09] MEDS ORDERED: Terbutaline 1 MG/ML SDV IV ONE (08:40)
[2022-12-09] MEDS ORDERED: ePHEDrine 50 MG/ML SDV IVPUSH PRN (08:58)
[2022-12-09] MEDS ORDERED: fentaNYL 100 MCG/2 ML SDV EPIDUR PRN (08:58)
[2022-12-09] MEDS ORDERED: Bupivacaine/fentaNYL/NS 100 ML Bag EPIDUR PRN (08:58)
[2022-12-09] MEDS ORDERED: diphenhydrAMINE 50 MG/ML SDV IVPUSH PRN (08:58)
[2022-12-09] MEDS ORDERED: Calcium Carbonate 500 MG Tab.Chew PO PRN (08:59)
[2022-12-09] MEDS ORDERED: Ondansetron 4 MG/2 ML SDV IVPUSH PRN (08:59)
[2022-12-09] MEDS ORDERED: Nalbuphine 10 MG/0.5 ML Syringe IVPUSH PRN (08:59)
[2022-12-09] MEDS ORDERED: Lidocaine 1% 50 ML MDV INJECT ONE (08:59)
[2022-12-09] MEDS ORDERED: Oxytocin/Lactated Ringers 10 UNIT/1,000 ML BAG IV SCH ×2 (09:00)
[2022-12-09] MEDS ORDERED: Sodium Chloride 0.9% 10 ML Syringe FLUSH SCH (09:00)
[2022-12-09] MEDS: Lactated Ringers 1,000 ML IV SCH ×2 (09:35→16:02)
[2022-12-09] MEDS ORDERED: Docusate Sodium 100 MG Cap PO PRN (19:32)
[2022-12-09] MEDS ORDERED: Witch Hazel Medicated Pads 40/Jar TOP PRN (19:32)
[2022-12-09] MEDS ORDERED: Acetaminophen 325 MG Tab PO PRN (19:32)
[2022-12-09] MEDS ORDERED: Benzocaine/Menthol 20%-0.5% Spray 78 GM Cannister TOP PRN (19:32)
[2022-12-10] MEDS ORDERED: Levothyroxine 25 MCG Tab PO SCH (06:00)
[2022-12-10] MEDS: Ibuprofen 600 MG Tab PO PRN ×2 (08:21→13:59)
[2022-12-10] MEDS ORDERED: Prenatal Multivitamin with Calcium/Folic Acid/Iron Tab PO SCH (09:00)
[2022-12-10 17:06] VITALS: BP 120/86; PULSE 82
== END 2022-12-10 19:58 | disposition home or self-care (01) | DRG 560 ==
LOC: JD.OB 08:06 → OBSVTOIN 18:54 → JD.OB 18:54
PROVIDERS: ADMIT Obstetrics & Gynecology; ATTEND Obstetrics & Gynecology
PROC: 10E0XZZ Delivery of Products of Conception, External Approach (ICD-10-PCS; principal; 2022-12-09)
PROC: 10907ZC Drainage of Amniotic Fluid, Therapeutic from Products of Conception, Via Natural or Artificial Opening (ICD-10-PCS; 2022-12-09)
PROC: 3E0R3BZ Introduction of Anesthetic Agent into Spinal Canal, Percutaneous Approach (ICD-10-PCS; 2022-12-09)
PROC: 0HQ9XZZ Repair Perineum Skin, External Approach (ICD-10-PCS; 2022-12-09)
PROC: 00HU33Z Insertion of Infusion Device into Spinal Canal, Percutaneous Approach (ICD-10-PCS; 2022-12-09)
DX: O24.425 Gestational diabetes mellitus in childbirth, controlled by oral hypoglycemic drugs (principal); O99.284 Endocrine, nutritional and metabolic diseases complicating childbirth; E03.9 Hypothyroidism, unspecified; O70.0 First degree perineal laceration during delivery; O99.214 Obesity complicating childbirth; Z79.84 Long term (current) use of oral hypoglycemic drugs; Z79.890 Hormone replacement therapy; Z79.899 Other long term (current) drug therapy; Z88.2 Allergy status to sulfonamides; Z3A.39 39 weeks gestation of pregnancy; Z37.0 Single live birth; Z91.018 Allergy to other foods
CPT/HCPCS: 01967; 36410; 36415; 51702; 59025; 59409; 85025; 86592; 86850; 86900; 86901; A9270-GY; J2300; J2590; J3010; J3490; J7120